=== PATIENT | female | born 1960 | race Caucasian/White ===

== ENCOUNTER 2018-03-01 12:06 | Emergency (ER) | payer MEDICARE, OTHER ==
--- NOTE | 2018-03-01 13:15 | ED ---
General Adult HPI - General Chief complaint: ENT Stated complaint: Bloody Nose/Cough Source: patient, RN notes reviewed, old records reviewed Mode of arrival: ambulatory Limitations: no limitations - History of Present Illness Initial comments: 57-year-old female patient with no pertinent past medical history seeks evaluation for nosebleed yesterday. Patient states that last 2 days when she blows her nose she has noticed clots. Patient did not have any prieto blood running out of her nose. Patient denies use of blood thinners. Patient also complains of approximately 1 month of cough with some productive mucus, no blood. Patient is a smoker with no history of COPD. Patient states she has a history of headaches, patient states approximately a she has had some mild bitemporal tension headaches which resolve without intervention. Patient denies nausea vomiting diarrhea, patient denies changes in vision, patient denies fever chills, patient denies dysuria. Pt states that she had hysterectomy, could not be . Systemic: Pt denies fatigue, myalgia, fever/chills, rash. Pt denies weakness, night sweats, weight loss. Neuro: Pt denies visual disturbances, syncope or pre-syncope. HEENT: Pt denies ocular discharge or irritation, otalgia, rhinorrhea, pharyngitis or notable lymphadenopathy. Cardiopulmonary: Pt denies chest pain, SOB, heart palpitations, dyspnea on exertion. Abdominal/GI: Pt denies abdominal pain, n/v/d. : Pt denies dysuria, burning w/ urination, frequency/urgency. Denies new onset urinary or bowel incontinence. MSK: Pt denies myalgia, loss of strength or function in extremities. Neuro: Pt denies new onset weakness, paresthesias. - Related Data Previous Rx's Medication Instructions Recorded Lisinopril [Zestril] 20 mg PO DAILY #14 tab 02/28/17 Lurasidone [Latuda] 80 mg PO W/LUNCH #14 tab 02/28/17 Nicotine 14Mg/24Hr Patch [Habitrol] 1 patch TRANSDERM DAILY #1 box 02/28/17 traZODone HCL 150 mg PO HS #14 tablet 02/28/17 Azithromycin [Zithromax Z-pack] 0 mg PO DIRECTED #6 tab 03/01/18 Allergies Allergy/AdvReac Type Severity Reaction Status Date / Time No Known Allergies Allergy Verified 01/21/17 18:31 Review of Systems ROS Statement: Those systems with pertinent positive or pertinent negative responses have been documented in the HPI. ROS Other: All systems not noted in ROS Statement are negative. Past Medical History Past Medical History: Chest Pain / Angina, Diabetes Mellitus, GI Bleed, Hyperlipidemia, Hypertension Additional Past Medical History / Comment(s): "I USED TO MAKE MYSELF THROW FOOD BACK UP TEENAGER UNTIL 36 AND DEVELOPED ULCERATION IN THROAT/ESOPHAGUS FROM THAT" History of Any Multi-Drug Resistant Organisms: None Reported Past Surgical History: Hysterectomy, Orthopedic Surgery Additional Past Surgical History / Comment(s): pt states has neha in left ankle with 3 screws Past Anesthesia/Blood Transfusion Reactions: No Reported Reaction Past Psychological History: Anxiety, Bipolar, Depression Smoking Status: Current every day smoker Past Alcohol Use History: None Reported Past Drug Use History: None Reported - Past Family History Mother Additional Family Medical History / Comment(s): pt states mom had some type of heart problems General Exam - General Exam Comments Initial Comments: Constitutional: NAD, AOX3, Pt has pleasant affect. HEENT: NC/AT, trachea midline, neck supple, no lymphadenopathy. Posterior pharynx non erythematous, without exudates. External ears appear normal, without discharge. Mucous membranes moist. Eyes PERRLA, EOM intact. There is no scleral icterus. No pallor noted. Cardiopulmonary: RRR, no murmurs, rubs or gallops, no JVD noted. Lungs CTAB in anterior and posterior flores. No peripheral edema. Abdominal exam: Abdomen soft and non-distended. Abdomen non-tender to palpation in all 4 quadrants. Bowel sounds active in LLQ. No hepatosplenomegaly. No ecchymosis Neuro: CN II-XII grossly intact. No nuchal rigidity. MSK: No posterior calf tenderness bilaterally, homans sign negative bilaterally. Posterior tibialis and radial pulse +2 bilaterally. Limitations: no limitations Course Vital Signs 03/01/18 12:34 Temperature 98.3 F Pulse Rate 100 Respiratory 18 Rate Blood Pressure 136/86 O2 Sat by Pulse 100 Oximetry Medical Decision Making - Medical Decision Making 57-year-old female patient with no pertinent past medical history seeks evaluation for nosebleed yesterday. Patient states that last 2 days when she blows her nose she has noticed clots. Patient did not have any prieto blood running out of her nose. Patient denies use of blood thinners. Patient also complains of approximately 1 month of cough with some productive mucus, no blood. Physical exam did not display acute pathology. Neuro exam within normal limits, cardiopulmonary pulmonary exam within normal limits, no abdominal tenderness. Laboratory investigations were conducted, coagulation studies did not display acute pathology. CBC/CMP displayed slightly elevated liver enzymes. These findings were discussed with patient and patient verbalized understanding to follow with primary care provider. Chest x-ray displayed possible right lobe pneumonia. Patient to be started on azithromycin for this. Discussed patient that bleeding while blowing nose is likely secondary to dry air, recommended using a humidifier in house. Patient verbalizes understanding. Patient to follow with primary care provider in 1-2 days. Patient to return to ED if new signs or symptoms develop including difficulty breathing, chest pain, shortness breath, abdominal pain, any other new symptoms. Case discussed with Dr. Aguilar. - Lab Data Result diagrams: 03/01/18 13:11 03/01/18 13:11 Lab Results 03/01/18 03/01/18 03/01/18 Range/Units 13:11 13:11 13:11 WBC 3.7 L (3.8-10.6) k/uL RBC 4.52 (3.80-5.40) m/uL Hgb 15.3 (11.4-16.0) gm/dL Hct 47.3 H (34.0-46.0) % MCV 104.7 H (80.0-100.0) fL MCH 33.8 (25.0-35.0) pg MCHC 32.3 (31.0-37.0) g/dL RDW 15.9 H (11.5-15.5) % Plt Count 298 (150-450) k/uL Neutrophils % 44 % Lymphocytes % 47 % Monocytes % 2 % Eosinophils % 2 % Basophils % 1 % Neutrophils # 1.6 (1.3-7.7) k/uL Lymphocytes # 1.8 (1.0-4.8) k/uL Monocytes # 0.1 (0-1.0) k/uL Eosinophils # 0.1 (0-0.7) k/uL Basophils # 0.0 (0-0.2) k/uL Macrocytosis Moderate PT 10.4 (9.0-12.0) sec INR 1.0 (<1.2) APTT 25.4 (22.0-30.0) sec Sodium 142 (137-145) mmol/L Potassium 4.5 (3.5-5.1) mmol/L Chloride 113 H (98-107) mmol/L Carbon Dioxide 18 L (22-30) mmol/L Anion Gap 11 mmol/L BUN 17 (7-17) mg/dL Creatinine 0.62 (0.52-1.04) mg/dL Est GFR (CKD-EPI)AfAm >90 (>60 ml/min/1.73 sqM) Est GFR (CKD-EPI)NonAf >90 (>60 ml/min/1.73 sqM) Glucose 138 H (74-99) mg/dL Calcium 10.1 (8.4-10.2) mg/dL Total Bilirubin 0.6 (0.2-1.3) mg/dL AST 38 H (14-36) U/L ALT 143 H (9-52) U/L Alkaline Phosphatase 84 (38-126) U/L Total Protein 8.4 H (6.3-8.2) g/dL Albumin 4.7 (3.5-5.0) g/dL Disposition Clinical Impression: Pneumonia Disposition: HOME SELF-CARE Condition: Good Instructions: Bacterial Pneumonia (ED) Additional Instructions: Patient to adhere to previously discussed treatment plan and will take medication(s) as directed. Patient to follow up with PCP in 1-2 days. Patient to return to ED if symptoms do not improve. Prescriptions: Azithromycin [Zithromax Z-pack] 0 mg PO DIRECTED #6 tab Is patient prescribed a controlled substance at d/c from ED?: No Referrals: Linda Bach PAC [Primary Care Provider] - 1-2 days Time of Disposition: 14:52
[2018-03-01 13:24] LABS: Basophils % (A) 1 %; Eosinophils # (A) 0.1 k/uL (0-0.7); Eosinophils % (A) 2 %; HCT 47.3 % (34.0-46.0); HGB 15.3 gm/dL (11.4-16.0); Lymphocytes # (A) 1.8 k/uL (1.0-4.8); Lymphocytes % (A) 47 %; MCH 33.8 pg (25.0-35.0); MCHC 32.3 g/dL (31.0-37.0); MCV 104.7 fL (80.0-100.0); Macrocytosis Moderate; Mean Platelet Volume 6.6; Monocytes # (A) 0.1 k/uL (0-1.0); Monocytes % (A) 2 %; Neutrophils # (A) 1.6 k/uL (1.3-7.7); Neutrophils % (A) 44 %; Platelet Count 298 k/uL (150-450); RBC 4.52 m/uL (3.80-5.40); RDW 15.9 % (11.5-15.5); WBC 3.7 k/uL (3.8-10.6)
[2018-03-01 13:39] LABS: ALT 143 U/L (9-52); AST 38 U/L (14-36); Albumin 4.7 g/dL (3.5-5.0); Alkaline Phosphatase 84 U/L (38-126); Anion Gap 11 mmol/L; Blood Urea Nitrogen 17 mg/dL (7-17); Calcium 10.1 mg/dL (8.4-10.2); Carbon Dioxide 18 mmol/L (22-30); Chloride 113 mmol/L (98-107); Glucose 138 mg/dL (74-99); Potassium 4.5 mmol/L (3.5-5.1); Sodium 142 mmol/L (137-145); Total Bilirubin 0.6 mg/dL (0.2-1.3); Total Protein 8.4 g/dL (6.3-8.2)
[2018-03-01 13:51] LABS: Partial Thromboplastin Time 25.4 sec (22.0-30.0); Prothrombin Time 10.4 sec (9.0-12.0)
--- NOTE | 2018-03-01 14:21 | XR ---
EXAMINATION TYPE: XR chest 2V DATE OF EXAM: 03/01/2018 COMPARISON: Prior chest x-ray 01/31/2016 HISTORY: Bloody nose, epistaxis TECHNIQUE: Frontal and lateral views of the chest are obtained. FINDINGS: There is no pleural effusion or pneumothorax seen. The cardiac silhouette size is within normal limits. The osseous structures are intact. Questionable nodular density superimposed over th e superior midthoracic spine on the lateral exam. Lateral exam shows some possible basilar airspace d isease. IMPRESSION: Possible pneumonia versus atelectasis, suspect right lower lobe, questionable nodular de nsity, follow-up recommended.
[2018-03-01 15:01] VITALS: BP 147/84; PULSE 91; RESP 16; TEMP 97.7
== END 2018-03-01 14:59 | disposition home or self-care (01) ==
LOC: EC 12:06
DX: J18.9 Pneumonia, unspecified organism (principal); F17.200 Nicotine dependence, unspecified, uncomplicated
CPT/HCPCS: 36415; 71046; 80053; 85025; 85610; 85730; 99284

== ENCOUNTER 2018-10-18 13:03 | Emergency (ER) | payer MEDICARE, OTHER ==
[2018-10-18] MEDS ORDERED: ONDANSETRON 4 MG/2 ML VIAL IVP STA (13:50)
[2018-10-18] MEDS ORDERED: HYDROmorphone 1 MG/ML 1 ML SYRINGE IVP STA (13:50)
[2018-10-18] MEDS ORDERED: SODIUM CHLORIDE 0.9% 1,000 ML IV STA ×2 (13:50)
[2018-10-18] MEDS ORDERED: PANTOPRAZOLE 40 MG/10 ML VIAL IVP STA (13:50)
--- NOTE | 2018-10-18 14:58 | ED ---
Abdominal Pain HPI - General Chief Complaint: Abdominal Pain Stated Complaint: Stomach pain Time Seen by Provider: 10/18/18 13:32 Source: patient, RN notes reviewed, old records reviewed Mode of arrival: ambulatory Limitations: no limitations - History of Present Illness Initial Comments: Patient is a 58-year-old female who presents emergency Department today with complaint of difficulty shallow breathing as well as upper abdominal pain. She's been having symptoms for the past month. She reports abdominal pain was worse over the past day. Patient states that she has no associated chest pain. She has had 3 of diabetes hypertension and hyperlipidemia. - Related Data Previous Rx's Medication Instructions Recorded Lisinopril [Zestril] 20 mg PO DAILY #14 tab 02/28/17 Lurasidone [Latuda] 80 mg PO W/LUNCH #14 tab 02/28/17 Nicotine 14Mg/24Hr Patch [Habitrol] 1 patch TRANSDERM DAILY #1 box 02/28/17 traZODone HCL 150 mg PO HS #14 tablet 02/28/17 Azithromycin [Zithromax Z-pack] 0 mg PO DIRECTED #6 tab 03/01/18 Allergies Allergy/AdvReac Type Severity Reaction Status Date / Time No Known Allergies Allergy Verified 10/18/18 13:33 Review of Systems ROS Statement: Those systems with pertinent positive or pertinent negative responses have been documented in the HPI. ROS Other: All systems not noted in ROS Statement are negative. Past Medical History Past Medical History: Chest Pain / Angina, Diabetes Mellitus, GI Bleed, Hyperlipidemia, Hypertension Additional Past Medical History / Comment(s): "I USED TO MAKE MYSELF THROW FOOD BACK UP TEENAGER UNTIL 36 AND DEVELOPED ULCERATION IN THROAT/ESOPHAGUS FROM THAT" History of Any Multi-Drug Resistant Organisms: None Reported Past Surgical History: Hysterectomy, Orthopedic Surgery Additional Past Surgical History / Comment(s): Rigo placement in (R) leg Past Anesthesia/Blood Transfusion Reactions: No Reported Reaction Past Psychological History: Anxiety, Bipolar, Depression Smoking Status: Current every day smoker Past Alcohol Use History: None Reported Past Drug Use History: None Reported - Past Family History Mother Additional Family Medical History / Comment(s): pt states mom had some type of heart problems General Exam - General Exam Comments Initial Comments: 58-year-old male. Alert and oriented. No distress. Limitations: no limitations General appearance: alert, in no apparent distress Head exam: Present: atraumatic, normocephalic, normal inspection Eye exam: Present: normal appearance, PERRL, EOMI. Absent: scleral icterus, conjunctival injection, periorbital swelling ENT exam: Present: normal exam, mucous membranes moist Neck exam: Present: normal inspection. Absent: tenderness, meningismus, lymphadenopathy Respiratory exam: Present: normal lung sounds bilaterally. Absent: respiratory distress, wheezes, rales, rhonchi, stridor Cardiovascular Exam: Present: regular rate, normal rhythm, normal heart sounds. Absent: systolic murmur, diastolic murmur, rubs, gallop, clicks GI/Abdominal exam: Present: soft, tenderness (Right upper quadrant tenderness), normal bowel sounds. Absent: distended, guarding, rebound, rigid Extremities exam: Present: normal inspection, full ROM, normal capillary refill. Absent: tenderness, pedal edema, joint swelling, calf tenderness Back exam: Present: normal inspection Neurological exam: Present: alert, oriented X3, CN II-XII intact Psychiatric exam: Present: normal affect, normal mood Course Vital Signs 10/18/18 10/18/18 10/18/18 13:31 14:33 16:55 Temperature 98.4 F Pulse Rate 113 H 101 H Respiratory 22 22 18 Rate Blood Pressure 114/93 148/92 O2 Sat by Pulse 95 97 96 Oximetry 10/18/18 18:00 Temperature 98.3 F Pulse Rate 68 Respiratory 16 Rate Blood Pressure 137/82 O2 Sat by Pulse 96 Oximetry Medical Decision Making - Medical Decision Making Patient is a 58-year-old female presents emergency room today with complaints of upper abdominal pain, and pain with taking a deep breath and her upper abdomen and lower ribs. Patient had some right upper quadrant tenderness. Initial concern for gallbladder disease. Patient's blood work was reviewed and relatively unremarkable. Due to tenderness patient's pain did do a CT abdomen and pelvis. His evidence of severe hepatomegaly. Patient was informed is likely related to diet use or history of alcoholism. I discussed the patient's liver enzymes are otherwise normal. We will add a hepatitis panel. I discussed Patient is to follow up with gastroenterology. I discussed diet changes and close follow-up with primary care doctor. All questions were answered return parameters were discussed. - Lab Data Result diagrams: 10/18/18 14:45 10/18/18 14:45 Lab Results 10/18/18 10/18/18 10/18/18 Range/Units 14:45 14:45 14:45 WBC 6.1 (3.8-10.6) k/uL RBC 3.69 L (3.80-5.40) m/uL Hgb 13.5 (11.4-16.0) gm/dL Hct 40.1 (34.0-46.0) % MCV 108.6 H (80.0-100.0) fL MCH 36.7 H (25.0-35.0) pg MCHC 33.8 (31.0-37.0) g/dL RDW 14.1 (11.5-15.5) % Plt Count 276 (150-450) k/uL Neutrophils % 54 % Lymphocytes % 34 % Monocytes % 6 % Eosinophils % 2 % Basophils % 1 % Neutrophils # 3.3 (1.3-7.7) k/uL Lymphocytes # 2.1 (1.0-4.8) k/uL Monocytes # 0.4 (0-1.0) k/uL Eosinophils # 0.1 (0-0.7) k/uL Basophils # 0.0 (0-0.2) k/uL Macrocytosis Moderate PT 10.0 (9.0-12.0) sec INR 0.9 (<1.2) APTT 24.5 (22.0-30.0) sec Sodium 136 L (137-145) mmol/L Potassium 4.5 (3.5-5.1) mmol/L Chloride 101 (98-107) mmol/L Carbon Dioxide 20 L (22-30) mmol/L Anion Gap 15 mmol/L BUN 19 H (7-17) mg/dL Creatinine 0.62 (0.52-1.04) mg/dL Est GFR (CKD-EPI)AfAm >90 (>60 ml/min/1.73 sqM) Est GFR (CKD-EPI)NonAf >90 (>60 ml/min/1.73 sqM) Glucose 182 H (74-99) mg/dL Calcium 10.2 (8.4-10.2) mg/dL Total Bilirubin 0.7 (0.2-1.3) mg/dL AST 76 H (14-36) U/L ALT 41 (9-52) U/L Alkaline Phosphatase 90 (38-126) U/L Troponin I (0.000-0.034) ng/mL Total Protein 8.0 (6.3-8.2) g/dL Albumin 4.8 (3.5-5.0) g/dL Amylase 63 (30-110) U/L Lipase 151 (23-300) U/L Urine Color Urine Appearance (Clear) Urine pH (5.0-8.0) Ur Specific [place] (1.001-1.035) Urine Protein (Negative) Urine Glucose (UA) (Negative) Urine Ketones (Negative) Urine Blood (Negative) Urine Nitrite (Negative) Urine Bilirubin (Negative) Urine Urobilinogen (<2.0) mg/dL Ur Leukocyte Esterase (Negative) Urine WBC (0-5) /hpf Ur Squamous Epith Cells (0-4) /hpf Hyaline Casts (0-2) /lpf Urine Mucus (None) /hpf Hepatitis A IgM Ab Hep Bs Antigen (Non-Reactive) Hep B Core IgM Ab (Non-Reactive) Hep C IgG Ab (Non-Reactive) 10/18/18 10/18/18 10/18/18 Range/Units 14:45 14:45 14:45 WBC (3.8-10.6) k/uL RBC (3.80-5.40) m/uL Hgb (11.4-16.0) gm/dL Hct (34.0-46.0) % MCV (80.0-100.0) fL MCH (25.0-35.0) pg MCHC (31.0-37.0) g/dL RDW (11.5-15.5) % Plt Count (150-450) k/uL Neutrophils % % Lymphocytes % % Monocytes % % Eosinophils % % Basophils % % Neutrophils # (1.3-7.7) k/uL Lymphocytes # (1.0-4.8) k/uL Monocytes # (0-1.0) k/uL Eosinophils # (0-0.7) k/uL Basophils # (0-0.2) k/uL Macrocytosis PT (9.0-12.0) sec INR (<1.2) APTT (22.0-30.0) sec Sodium (137-145) mmol/L Potassium (3.5-5.1) mmol/L Chloride (98-107) mmol/L Carbon Dioxide (22-30) mmol/L Anion Gap mmol/L BUN (7-17) mg/dL Creatinine (0.52-1.04) mg/dL Est GFR (CKD-EPI)AfAm (>60 ml/min/1.73 sqM) Est GFR (CKD-EPI)NonAf (>60 ml/min/1.73 sqM) Glucose (74-99) mg/dL Calcium (8.4-10.2) mg/dL Total Bilirubin (0.2-1.3) mg/dL AST (14-36) U/L ALT (9-52) U/L Alkaline Phosphatase (38-126) U/L Troponin I <0.012 (0.000-0.034) ng/mL Total Protein (6.3-8.2) g/dL Albumin (3.5-5.0) g/dL Amylase (30-110) U/L Lipase (23-300) U/L Urine Color Yellow Urine Appearance Clear (Clear) Urine pH 5.5 (5.0-8.0) Ur Specific [place] 1.025 (1.001-1.035) Urine Protein 1+ H (Negative) Urine Glucose (UA) Negative (Negative) Urine Ketones Negative (Negative) Urine Blood Negative (Negative) Urine Nitrite Negative (Negative) Urine Bilirubin Negative (Negative) Urine Urobilinogen <2.0 (<2.0) mg/dL Ur Leukocyte Esterase Negative (Negative) Urine WBC 2 (0-5) /hpf Ur Squamous Epith Cells 3 (0-4) /hpf Hyaline Casts 13 H (0-2) /lpf Urine Mucus Rare H (None) /hpf Hepatitis A IgM Ab Hep Bs Antigen Non-Reactive (Non-Reactive) Hep B Core IgM Ab Non-Reactive (Non-Reactive) Hep C IgG Ab Reactive H (Non-Reactive) 10/19/18 Range/Units 03:07 WBC (3.8-10.6) k/uL RBC (3.80-5.40) m/uL Hgb (11.4-16.0) gm/dL Hct (34.0-46.0) % MCV (80.0-100.0) fL MCH (25.0-35.0) pg MCHC (31.0-37.0) g/dL RDW (11.5-15.5) % Plt Count (150-450) k/uL Neutrophils % % Lymphocytes % % Monocytes % % Eosinophils % % Basophils % % Neutrophils # (1.3-7.7) k/uL Lymphocytes # (1.0-4.8) k/uL Monocytes # (0-1.0) k/uL Eosinophils # (0-0.7) k/uL Basophils # (0-0.2) k/uL Macrocytosis PT (9.0-12.0) sec INR (<1.2) APTT (22.0-30.0) sec Sodium (137-145) mmol/L Potassium (3.5-5.1) mmol/L Chloride (98-107) mmol/L Carbon Dioxide (22-30) mmol/L Anion Gap mmol/L BUN (7-17) mg/dL Creatinine (0.52-1.04) mg/dL Est GFR (CKD-EPI)AfAm (>60 ml/min/1.73 sqM) Est GFR (CKD-EPI)NonAf (>60 ml/min/1.73 sqM) Glucose (74-99) mg/dL Calcium (8.4-10.2) mg/dL Total Bilirubin (0.2-1.3) mg/dL AST (14-36) U/L ALT (9-52) U/L Alkaline Phosphatase (38-126) U/L Troponin I (0.000-0.034) ng/mL Total Protein (6.3-8.2) g/dL Albumin (3.5-5.0) g/dL Amylase (30-110) U/L Lipase (23-300) U/L Urine Color Urine Appearance (Clear) Urine pH (5.0-8.0) Ur Specific [place] (1.001-1.035) Urine Protein (Negative) Urine Glucose (UA) (Negative) Urine Ketones (Negative) Urine Blood (Negative) Urine Nitrite (Negative) Urine Bilirubin (Negative) Urine Urobilinogen (<2.0) mg/dL Ur Leukocyte Esterase (Negative) Urine WBC (0-5) /hpf Ur Squamous Epith Cells (0-4) /hpf Hyaline Casts (0-2) /lpf Urine Mucus (None) /hpf Hepatitis A IgM Ab NEGATIVE Hep Bs Antigen (Non-Reactive) Hep B Core IgM Ab (Non-Reactive) Hep C IgG Ab (Non-Reactive) 10/18/18 15:00 EKG performed at 1443 shows normal sinus rhythm possible left atrial left ventricular hypertrophy noted. Cannot rule out anterior infarct age undetermined. Male in considerable lateral ischemia. Abnormal EKG noted. Ventricular rate of 97 beats were minute. Intervals 154 ms. QRS duration 86 ms. QT QTc is 368/467 ms. - Radiology Data Radiology results: report reviewed CT shows to be repetitively measured 28.4 cm HEPATIC steatosis P according to the lipid profile. Mild diverticulosis at the junction of the descending and sigmoid colon. No diverticulitis. Disposition Clinical Impression: Hepatomegaly Disposition: HOME SELF-CARE Condition: Good Instructions (If sedation given, give patient instructions): Liver Disease Diet (DC) Additional Instructions: Patient advised that close follow-up with primary care doctor, change your diet to avoid fatty foods. Return to the emergency department if any alarming signs or symptoms occur. Is patient prescribed a controlled substance at d/c from ED?: No Referrals: [facility] [Primary Care Provider] - 1-2 days Alley Macario MD [STAFF PHYSICIAN] - 1-2 days Time of Disposition: 17:53
[2018-10-18 15:14] LABS: Appearance,Urine Clear (Clear); Bilirubin,Urine Negative (Negative); Blood,Urine Negative (Negative); Color,Urine Yellow; Glucose,Urine (UA) Negative (Negative); Hyaline Casts,Urine 13 /lpf (0-2); Ketones,Urine Negative (Negative); Leukocyte Esterase,Urine Negative (Negative); Mucus,Urine Rare /hpf; Nitrite,Urine Negative (Negative); PH, Urine 5.5 (5.0-8.0); Protein,Urine 1+ (Negative); Specific Gravity,Urine 1.025 (1.001-1.035); Squamous Epithelial Cell,Urine 3 /hpf (0-4); Urobilinogen,Urine <2.0 mg/dL (<2.0); WBC,Urine 2 /hpf (0-5)
[2018-10-18 15:17] LABS: Basophils % (A) 1 %; Eosinophils # (A) 0.1 k/uL (0-0.7); Eosinophils % (A) 2 %; HCT 40.1 % (34.0-46.0); HGB 13.5 gm/dL (11.4-16.0); Lymphocytes # (A) 2.1 k/uL (1.0-4.8); Lymphocytes % (A) 34 %; MCH 36.7 pg (25.0-35.0); MCHC 33.8 g/dL (31.0-37.0); MCV 108.6 fL (80.0-100.0); Macrocytosis Moderate; Mean Platelet Volume 8.2; Monocytes # (A) 0.4 k/uL (0-1.0); Monocytes % (A) 6 %; Neutrophils # (A) 3.3 k/uL (1.3-7.7); Neutrophils % (A) 54 %; Platelet Count 276 k/uL (150-450); RBC 3.69 m/uL (3.80-5.40); RDW 14.1 % (11.5-15.5); WBC 6.1 k/uL (3.8-10.6)
[2018-10-18 15:20] LABS: INR 0.9 (<1.2); Partial Thromboplastin Time 24.5 sec (22.0-30.0)
[2018-10-18 15:34] LABS: ALT 41 U/L (9-52); AST 76 U/L (14-36); African American GFR (CKD) >90 (>60 ml/min/1.73 sqM); Albumin 4.8 g/dL (3.5-5.0); Alkaline Phosphatase 90 U/L (38-126); Amylase 63 U/L (30-110); Anion Gap 15 mmol/L; Blood Urea Nitrogen 19 mg/dL (7-17); Calcium 10.2 mg/dL (8.4-10.2); Carbon Dioxide 20 mmol/L (22-30); Chloride 101 mmol/L (98-107); Glucose 182 mg/dL (74-99); Potassium 4.5 mmol/L (3.5-5.1); Sodium 136 mmol/L (137-145); Total Bilirubin 0.7 mg/dL (0.2-1.3)
--- NOTE | 2018-10-18 17:14 | CT ---
EXAMINATION TYPE: CT abdomen pelvis w con DATE OF EXAM: 10/18/2018 COMPARISON: NONE HISTORY: 58-year-old female Generalized abdominal pain x couple months. TECHNIQUE: Contiguous axial scanning of the abdomen and pelvis following administration of 100 ml Iso gabriela 300 IV contrast. Delayed images through the kidneys and coronal/sagittal reconstructions perform ed. CT DLP: 1827.3 mGycm Automated exposure control for dose reduction was used. FINDINGS: Heart normal size without pericardial effusion. Coronary vessel calcifications are present. Strandy a telectasis in the lower lungs without pleural effusion. Liver is markedly enlarged measuring 28.4 cm with marked low attenuation. Portal venous system is pat ent. No biliary ductal dilatation. Gallbladder, adrenal glands, left kidney, spleen, pancreas appear within normal limits. Subcentimeter cortical-based hypodensities within the right kidney are too small for accurate CT ever acterization, likely cysts. Mild to moderate prostatic calcifications abdominal aorta without aneurysm. No dilated small bowel, free fluid, or free air. No mesenteric or retroperitoneal lymphadenopathy. Normal appendix. No significant stool burden. Mild diverticular change of the junction of the descending and sigmoid c olon. No pericolonic inflammatory change. Bladder not distended. Multiple pelvic phleboliths. No abnormal fluid collection the pelvis or pelvic lymphadenopathy. Uterus surgically absent. Neither ovary is visualized. 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 Hypertrophic facet arthropathy with grade 1 anterolisthesis at L3-L4 and L4-L5. IMPRESSION: 1. SEVERE HEPATOMEGALY (28.4 CM) WITH SEVERE HEPATIC STEATOSIS. CORRELATE WITH LFT's, LIPID PROFILE, AND PATIENT RISK FACTORS. CORRELATE TO IF THIS FINDING MAY BE THE SOURCE OF THE PATIENT'S PAIN. 2. MILD DIVERTICULOSIS AT THE JUNCTION OF THE DESCENDING AND SIGMOID COLON. NO EVIDENCE FOR ACUTE DIV ERTICULITIS.
--- NOTE | 2018-10-18 18:11 | XR ---
EXAMINATION TYPE: XR chest 2V DATE OF EXAM: 10/18/2018 COMPARISON: 03/01/2018 HISTORY: 58 year-old female abdominal pain TECHNIQUE: PA and lateral views FINDINGS: Heart is normal in size. Aorta and pulmonary vasculature within normal limits. Mild interstitial prom inence is unchanged. No consolidation or pleural effusion. IMPRESSION: Chronic changes without acute cardiopulmonary process.
[2018-10-18 18:14] VITALS: BP 137/82; PULSE 68; RESP 16; TEMP 98.3
== END 2018-10-18 18:10 | disposition home or self-care (01) ==
LOC: EC 13:03
DX: R16.0 Hepatomegaly, not elsewhere classified (principal); F17.200 Nicotine dependence, unspecified, uncomplicated; K57.30 Diverticulosis of large intestine without perforation or abscess without bleeding; K76.0 Fatty (change of) liver, not elsewhere classified
CPT/HCPCS: 36415; 93005; 80053; 80074; 82150; 83690; 84484; 85025; 85610; 85730; 81001; 71046; 74177; 99285; 96374; 96375 ×2; 96361 ×3; J2405; J1170; C9113; Q9967